=== PATIENT | male | born 1960 | race Caucasian/White ===

== ENCOUNTER → 2017-04-11 | Outpatient (CLI) | payer BC ==
--- NOTE | 2017-04-11 10:41 | DIAGNOSTIC IMAGING REPORT ---
RIGHT KNEE 4 OR MORE CLINICAL HISTORY: RIGHT KNEE PAIN Right COMPARISON: None. DISCUSSION: The bones and joint spaces appear intact. There is no evidence of fracture, dislocation or bony disease. There is no evidence for soft tissue swelling. IMPRESSION: Negative study. Electronically signed by: Silas Leal M.D. 04/11/2017 10:40 AM Dictated Date/Time: 04/11/2017 10:39 AM
== END | disposition home or self-care (01) ==
LOC: C.RDSM 12:14
PROVIDERS: ATTEND Family Medicine
DX: M25.561 Pain in right knee (principal)